=== PATIENT | male | born 1955 | race Caucasian/White ===

== ENCOUNTER 2017-01-05 23:31 | Emergency (ER) | payer BC ==
[2017-01-05] MEDS ORDERED: BENZONATATE 100 MG CAPSULE PO ONE (23:55)
--- NOTE | 2017-01-05 23:56 | Emergency Department Record ---
History of Present Illness - General Chief Complaint: Cough Stated Complaint: MOMO Time Seen by Provider: 01/05/17 23:52 Source: Patient Mode of Arrival: Ambulatory Limitations: No limitations - History of Present Illness Initial Comments: 61 yo male presents to ED with a CC of intermittent cough and congestion symptoms for the past 1 month. Patient reports improvement with Zithromax, denies fevers, chills, or productive cough symptoms. Patient denies health problems at his baseline. MD Complaint: Cough Onset/Timin -: Month(s) Severity: Moderate Consistency: Intermittent Improves With: Other (antibiotic) Worsens With: Other (coughing) Context: Recent dental work, Sick contacts Associated Symptoms: Denies other symptoms Treatments Prior to Arrival: Antibiotics - Related Data Home Medications Medication Instructions Recorded Confirmed Last Taken Moxifloxacin HCl [Moxifloxacin HCl] 400 mg PO DAILY 01/05/17 01/05/17 Unknown Previous Rx's Medication Instructions Recorded Azithromycin [Zithromax] 500 mg PO DAILY #10 tab 01/05/17 Benzonatate [Tessalon] 2 cap PO Q8H PRN #30 cap 01/05/17 Allergies Allergy/AdvReac Type Severity Reaction Status Date / Time codeine [CODEINE] Allergy Unknown Unverified 03/19/14 10:03 penicillin G [PENICILLIN G] Allergy Unknown Unverified 03/19/14 10:03 Travel Screening - Travel/Exposure Within Last 30 Days Have you traveled within the last 30 days?: No Review of Systems Constitutional: Denies: Chills, Fever, Malaise, Night sweats Eyes: Denies: Eye discharge, Eye pain ENT: Reports: Congestion. Denies: Ear pain, Epistaxis, Throat pain Respiratory: Reports: Cough. Denies: Dyspnea, Hemoptysis Cardiovascular: Denies: Chest pain, Dyspnea on exertion Endocrine: Denies: Fatigue, Heat or cold intolerance Gastrointestinal: Denies: Abdominal pain, Nausea, Vomiting Genitourinary: Denies: Incontinence, Retention Musculoskeletal: Denies: Arthralgia, Back pain, Gout, Joint swelling Skin: Denies: Bruising, Change in color Neurological: Denies: Abnormal gait, Confusion, Headache, Seizure Psychiatric: Denies: Anxiety Hematological/Lymphatic: Denies: Anemia, Blood Clots Past Medical History - SOCIAL HISTORY Smoking Status: Never smoker Alcohol Use: None Drug Use: None - RESPIRATORY Hx Respiratory Disorders: No - CARDIOVASCULAR Hx Cardio Disorders: No - NEURO Hx Neuro Disorders: No - GI Hx GI Disorders: No - Hx Genitourinary Disorders: No - ENDOCRINE Hx Endocrine Disorders: No - MUSCULOSKELETAL Hx Musculoskeletal Disorders: No - PSYCH Hx Psych Problems: No - HEMATOLOGY/ONCOLOGY Hx Hematology/Oncology Disorders: No Family Medical History Any Significant Family History?: Yes Hx Cancer: Mother *Cancer Comment: M-Breast Physical Exam - General General Appearance: Alert, Oriented x3, Cooperative, No acute distress Limitations: No limitations - Head Head exam: Atraumatic, Normocephalic, Normal inspection Head exam detail: negative: Abrasion, Contusion, Bearden's sign, General tenderness, Hematoma, Laceration - Eye Eye exam: Normal appearance. negative: Conjunctival injection, Periorbital swelling, Periorbital tenderness, Scleral icterus - ENT Ear exam: negative: Auricular hematoma, Auricular trauma Nasal Exam: negative: Active bleeding, Discharge, Dried blood, Foreign body Mouth exam: negative: Drooling, Laceration, Muffled voice, Tongue elevation - Neck Neck exam: Normal inspection. negative: Meningismus, Tenderness - Respiratory Respiratory exam: Normal lung sounds bilaterally. negative: Rales, Respiratory distress, Rhonchi, Stridor - Cardiovascular Cardiovascular Exam: Regular rate, Normal rhythm, Normal heart sounds - GI/Abdominal GI/Abdominal exam: Soft. negative: Rebound, Rigid, Tenderness - Rectal Rectal exam: Deferred - exam: Deferred - Extremities Extremities exam: Normal inspection. negative: Pedal edema, Tenderness - Back Back exam: Denies: CVA tenderness (R), CVA tenderness (L) - Neurological Neurological exam: Alert, Normal gait, Oriented X3 - Psychiatric Psychiatric exam: Normal affect, Normal mood - Skin Skin exam: Normal color. negative: Abrasion Type of lesion: negative: abrasion Course Vital Signs 01/05/17 23:39 Temperature 98 F Pulse Rate [ 76 Pulse Ox Probe] Respiratory 24 Rate Blood Pressure 138/107 [Right Arm] Pulse Ox 95 - Reevaluation(s) Reevaluation #1: 01/06/17 00:00 Patient seen and examined, symptoms appear c/w bronchitis. Patient is currently taking Prednisone and Avelox (reports not working for him), and reports that Phenergan with Codeine upsets his stomach. After discussing treatment options with the patient, will prescribe Zithromax again as he reports that his symptoms improved with the medication and Tessalon Perles for his cough symptoms. Patient has also been using Symbicort for his symptoms. Patient appears stable for discharge at this time. Disposition Disposition: Discharge Clinical Impression: Bronchitis Disposition: Home, Self-Care Condition: (2) Stable Instructions: Acute Bronchitis (ED) Additional Instructions: Return to ED if your symptoms worsen or if you have any concerns. Zithromax and Tessalon as directed. Follow-up with Dr. Guallpa in 3-5 days as directed. Prescriptions: Benzonatate [Tessalon] 2 cap PO Q8H PRN #30 cap PRN Reason: Cough Azithromycin [Zithromax] 500 mg PO DAILY #10 tab Forms: Patient Portal Access Time of Disposition: 00:02
[2017-01-06] MEDS ORDERED: AZITHROMYCIN 500 MG TABLET PO SCH (10:00)
== END 2017-01-06 00:11 | disposition home or self-care (01) ==
LOC: ER 23:31
DX: J20.9 Acute bronchitis, unspecified (principal)
CPT/HCPCS: 99282